=== PATIENT | male | born 1960 | race Caucasian/White ===

== ENCOUNTER 2016-07-14 20:56 | Emergency (ER) | payer OTHER | END 2016-07-15 01:20 | disposition home or self-care (01) | LOC: ER 20:56 | DX: R10.32 Left lower quadrant pain (principal); R10.31 Right lower quadrant pain; E78.5 Hyperlipidemia, unspecified; F17.210 Nicotine dependence, cigarettes, uncomplicated; Z79.82 Long term (current) use of aspirin; Z88.0 Allergy status to penicillin | CPT/HCPCS: 36415; 96374; 96375; J1885 ==